=== PATIENT | male | born 1985 | race Caucasian/White ===

== ENCOUNTER 2022-01-12 21:34 | Emergency (ER) | payer OTHER, MEDICAID ==
[~2022-01-12] VITALS: Ht 170.2 cm; Wt 90.7 kg
[2022-01-12 21:43] VITALS: BP_SYST 126
--- NOTE | 2022-01-12 21:46 | NUR ---
Patient to ER bed 06 to gown for evaluation. Side rails up.
--- NOTE | 2022-01-12 21:46 | NUR ---
Report given to Haile ZUNIGA
--- NOTE | 2022-01-12 21:50 | NUR ---
PT came from home with c/o weakness thet pat 2 weeks that has worsened over the last 3 days. Pt is A&O X 4, following commands. Pt is in and out of sleep but awakes to verbal and physical stimuli.
--- NOTE | 2022-01-12 22:05 | NUR ---
COVID and URINE colleted and sent to lab.
--- NOTE | 2022-01-12 22:08 | NUR ---
Report given to Mae ZUNIGA to assume all care. All patient care transferred at this time.
[2022-01-12 22:12] LABS: BILIRUBIN,URINE NEGATIVE (NEGATIVE); BLOOD, URINE NEGATIVE (NEGATIVE); CLARITY/URINE CLEAR (CLEAR); COLOR,URINE YELLOW (YELLOW); GLUCOSE,URINE NEGATIVE (NEGATIVE); KETONES,URINE 1+ (NEGATIVE); NITRITE, URINE NEGATIVE (NEGATIVE); PH,URINE 6.5 (5.0-8.0); PROTEIN URINE NEGATIVE (NEGATIVE)
--- NOTE | 2022-01-12 22:14 | NUR ---
ER at bedside examining patient.
[2022-01-12] MEDS ORDERED: NACL 0.9% 1,000 ML IV ONE (22:15)
[2022-01-12 22:23] LABS: LEUKOCYTE ESTERASE ,URINE NEGATIVE (NEGATIVE)
[2022-01-12 22:28] LABS: BASOPHILS # (AUTO) 0.1 K/uL (0.0-0.2); EOSINOPHILS # (AUTO) 0.4 K/uL (0.0-0.4); EOSINOPHILS % (AUTO) 4.7 % (0.0-4.0); HEMATOCRIT 43.6 % (36-54); LYMPHOCYTES % (AUTO) 37.9 % (20.5-51.5); MEAN CORPUSCULAR HEMOGLOBIN 35 pg (27-31); MEAN CORPUSCULAR HGB CONC 35 % (32-36); MEAN CORPUSCULAR VOLUME 100 fL (79.0-98.0); MONOCYTES # (AUTO) 0.7 K/uL (0.0-1.0); MONOCYTES % (AUTO) 8.8 % (1.7-9.3); NEUTROPHILS # (AUTO) 3.7 K/uL (1.8-7.7); NEUTROPHILS % (AUTO) 47.6 % (40.0-70.0); PLATELET COUNT (AUTO) 147 K/uL (130-430); RED BLOOD CELL COUNT(AUTO) 4.35 MIL/uL (4.2-6.2); RED CELL DISTRIBUTION WIDTH 13.2 % (9.0-15.0); WHITE BLOOD COUNT (AUTO) 7.8 K/uL (4.8-10.8)
[2022-01-12 22:42] LABS: BARBITURATE, URINE NEGATIVE (NEG <=200); BENZODIAZEPINE, URINE NEGATIVE (NEG <=150); URINE AMPHETAMINE POSITIVE (NEG <=500); URINE METHADONE NEGATIVE (NEG <=200)
[2022-01-12 22:43] LABS: CANNABINOID, URINE POSITIVE (NEG <=50); COCAINE, URINE NEGATIVE (NEG <=150); METHAMPHETAMINES SCREEN,URINE NEGATIVE (NEG <=500); OPIATE, URINE NEGATIVE (NEG <=100); PHENCYCLIDINE SCREEN,URINE NEGATIVE (NEG <=25); UR TRICYCLIC ANTIDEPRESSANTS NEGATIVE (NEG <=300); URINE OXYCODONE SCREEN NEGATIVE (NEG <=100); URINE PROPOXYPHENE SCREEN NEGATIVE (NEG <=300)
[2022-01-12 22:45] LABS: ANION GAP 7 (5-15); CALCIUM 8.8 mg/dL (8.4-11.0); CHLORIDE 104 mmol/L (98-107); GLUCOSE 96 mg/dL (70-99); SODIUM SERUM 141 mmol/L (136-145); UREA NITROGEN, BLOOD 8 mg/dL (8-21)
[2022-01-12 22:47] LABS: GFR AFRICAN AMERICAN 141 mL/min (>90)
[2022-01-12 22:51] LABS: ALANINE AMINOTRANSFERASE 213 U/L (12-78); ALBUMIN 3.3 g/dL (3.4-4.8); ASPARTATE AMINOTRANSFERASE 207 U/L (10-37); TOTAL BILIRUBIN 0.2 mg/dL (0.0-1.0)
[2022-01-12 22:56] LABS: C-REACTIVE PROTEIN QUANT < 0.2 mg/dL (0-0.5)
[2022-01-12 23:31] LABS: ALCOHOL, BLOOD 111 mg/dL (<10)
[2022-01-13] MEDS ORDERED: ZIT250 PO (01:06)
[2022-01-13 01:16] VITALS: BP_SYST 135
--- NOTE | 2022-01-13 01:18 | NUR ---
Patient given written and verbal discharge instructions and verbalizes understanding. ER MD discussed with patient the results and treatment provided. Patient in stable condition. ID arm band removed. IV catheter removed intact and dressing applied, no active bleeding. Rx of azithromycin given. Patient educated on pain management and to follow up with PMD. Pain Scale . Opportunity for questions provided and answered. Medication side effect fact sheet provided.
--- NOTE | 2022-01-18 06:40 | NUR ---
ADDENDUM Nacl 0.9% 1000ML start time 22:50 end time 23:50
== END 2022-01-13 01:17 | disposition home or self-care (01) ==
LOC: SED 21:34
DX: R53.1 Weakness (principal); R53.83 Other fatigue; R63.0 Anorexia; Z79.899 Other long term (current) drug therapy; Z20.822 Contact with and (suspected) exposure to COVID-19
CPT/HCPCS: 99284; 96360; 71046; 87426; 80307; 80053; 85025; 86140; 87040; 84484; 36415; 93005; 83605; 81003; G0482; J7030

== ENCOUNTER 2022-04-11 19:42 | Emergency (ER) | payer OTHER, MEDICAID ==
[~2022-04-11] VITALS: Ht 170.2 cm; Wt 95.3 kg
[~2022-04-11 19:42] MED LIST: ZIT250 PO
[2022-04-11 22:15] VITALS: BP_SYST 148
--- NOTE | 2022-04-11 22:31 | NUR ---
PATIENT PRESENTS TO ED FROM HOME WITH C/O COLD SYMPTOMS. PATIENT REPORTS POSITIVE COVID TEST AT HOME DONE TODAY. PATIENT REPORTS FEVER/CHILLS, NAUSEA, BODY ACHES, LOSS OF TASTE AND SMELL. PATIENT IS DIAPHORETIC AND WARM TO TOUCH. PT DENIES PMH/PMD. NAD NOTED AT THIS TIME.
[2022-04-11] MEDS ORDERED: NIRM1TAB PO (23:12)
[2022-04-11] MEDS ORDERED: PRED20TA PO (23:12)
[2022-04-11] MEDS ORDERED: ALBMDI INH (23:12)
[2022-04-11] MEDS ORDERED: ACETAMINOPHEN 500 MG TABLET PO ONE (23:15)
[2022-04-11] MEDS ORDERED: predniSONE 20 MG TABLET PO ONE (23:15)
[2022-04-11 23:35] VITALS: BP_SYST 148
--- NOTE | 2022-04-11 23:40 | NUR ---
ER at bedside examining patient.
--- NOTE | 2022-04-11 23:42 | NUR ---
Patient given written and verbal discharge instructions and verbalizes understanding. ER MD discussed with patient the results and treatment provided. Patient in stable condition. ID arm band removed. Rx of PREDNISONE AND TYLENOL given. Patient educated on pain management and to follow up with PMD. Opportunity for questions provided and answered. Medication side effect fact sheet provided.
== END 2022-04-11 23:35 | disposition home or self-care (01) ==
LOC: SED 19:42
DX: U07.1 COVID-19 (principal); J98.01 Acute bronchospasm; R50.9 Fever, unspecified; R06.02 Shortness of breath; R06.2 Wheezing; Z79.899 Other long term (current) drug therapy
CPT/HCPCS: 99283; J7512

== ENCOUNTER 2022-05-15 21:09 | Emergency (ER) | payer OTHER, MEDICAID ==
[~2022-05-15] VITALS: Ht 170.2 cm; Wt 91.6 kg
[~2022-05-15 21:09] MED LIST changes: +ALBMDI INH; +NIRM1TAB PO; +PRED20TA PO
[2022-05-15 21:20] VITALS: BP_SYST 143
[2022-05-15 21:39] LABS: BASOPHILS % (AUTO) 0.4 % (0.0-2.0); HEMATOCRIT 46.3 % (36-54); HEMOGLOBIN 15.5 g/dL (14.0-18.0); LYMPHOCYTES % (AUTO) 16.2 % (20.5-51.5); MEAN CORPUSCULAR HEMOGLOBIN 34 pg (27-31); MEAN CORPUSCULAR HGB CONC 34 % (32-36); MEAN CORPUSCULAR VOLUME 101 fL (79.0-98.0); MONOCYTES # (AUTO) 0.6 K/uL (0.0-1.0); MONOCYTES % (AUTO) 4.8 % (1.7-9.3); NEUTROPHILS # (AUTO) 9.6 K/uL (1.8-7.7); NEUTROPHILS % (AUTO) 78.6 % (40.0-70.0); PLATELET COUNT (AUTO) 208 K/uL (130-430); RED CELL DISTRIBUTION WIDTH 13.2 % (9.0-15.0); WHITE BLOOD COUNT (AUTO) 12.2 K/uL (4.8-10.8)
[2022-05-15 21:43] LABS: ANION GAP 11 (5-15); CALCIUM 9.2 mg/dL (8.4-11.0); CHLORIDE 104 mmol/L (98-107); CREATININE 0.99 mg/dL (0.55-1.30); GFR AFRICAN AMERICAN 110 mL/min (>90); GLUCOSE 198 mg/dL (70-99); UREA NITROGEN, BLOOD 9 mg/dL (8-21)
[2022-05-15] MEDS ORDERED: IPRATROPIUM/ALBUTEROL SULFATE 3 ML AMPUL.NEB (DUONEB) INH ONE ×2 (21:45→22:45)
[2022-05-15] MEDS ORDERED: predniSONE 20 MG TABLET PO ONE (21:45)
[2022-05-15 21:51] LABS: ALANINE AMINOTRANSFERASE 88 U/L (12-78); ALBUMIN 3.7 g/dL (3.4-4.8); ASPARTATE AMINOTRANSFERASE 71 U/L (10-37); TOTAL BILIRUBIN 0.3 mg/dL (0.0-1.0)
--- NOTE | 2022-05-15 22:21 | NUR ---
Placed in room 4 . Placed on digital research analyst, blood pressure machine and pulse oximeter. To gown for exam. Side rails up. Report given to DREW ZUNIGA(REG).
--- NOTE | 2022-05-15 22:40 | NUR ---
ERMD AT BEDSIDE EVALUATING PATIENT
--- NOTE | 2022-05-15 23:04 | NUR ---
BIB FAM MEMBER FROM HOME W C/O SOB W/ CHEST WALL PAIN FROM COUGHING X 3 DAYS. PT IS A HEAVY SMOKER. SMOKES A PACK A DAY. HAS BEEN TAKING ALBUTEROL AND STEROID INHALER FROM PCP WITH NO RELIF. TOOK A COVID TEST 3 DAYS AGO, CAME BACK NEG.
[2022-05-15] MEDS ORDERED: NACL 0.9% 1,000 ML IV ONE (23:30)
[2022-05-16 00:16] VITALS: BP_SYST 142
--- NOTE | 2022-05-16 00:22 | NUR ---
Patient transported to radiology via wheelchair for CT.
[2022-05-16] MEDS ORDERED: PRED20TA PO (02:10)
[2022-05-16] MEDS ORDERED: ZIT250 PO (02:15)
[2022-05-16] MEDS ORDERED: ALBMDI INH (02:15)
--- NOTE | 2022-05-16 02:23 | NUR ---
Patient given written and verbal discharge instructions and verbalizes understanding. ER MD discussed with patient the results and treatment provided. Patient in stable condition. ID arm band removed. IV catheter removed intact and dressing applied, no active bleeding. Rx of prednisone, zithromax, albuterol mdi given. Patient educated on pain management and to follow up with PMD. Pain Scale 0/10. Opportunity for questions provided and answered. Medication side effect fact sheet provided.
== END 2022-05-16 02:23 | disposition home or self-care (01) ==
LOC: SED 21:09
DX: J44.1 Chronic obstructive pulmonary disease with (acute) exacerbation (principal); Z87.09 Personal history of other diseases of the respiratory system; Z79.899 Other long term (current) drug therapy; Z20.822 Contact with and (suspected) exposure to COVID-19
CPT/HCPCS: 99284; 96360; 71045; 87426; 80053; 85025; 84484; 36415; 93005; 87804 ×2; 71275; 94640; 76376; J7512; J7030